=== PATIENT | female | born 1950 | race Caucasian/White ===

== ENCOUNTER 2022-07-22 08:50 | Day surgery (SDC) | payer MEDICARE, SELFPAY ==
[2022-07-22 09:19] VITALS: BP 133/91; PULSE 79; RESP 16; TEMP 36.4; O2SAT 98
[2022-07-22] MEDS: Tropicam./Phenyleph. (1/2.5%) 5 ML BTL OS ×3 (09:23→09:34)
--- NOTE | 2022-07-22 09:39 | W.ANESPRE ---
General Info Date of Service Date Performed: 07/22/22 Height: 5 ft 1 in Weight: 87.1 kg Body Mass Index (BMI): 36.3 Surgical Procedure: Operation Date: 07/22/22 10:40 Proposed Procedure Side Surgeon p Cataract Extraction with IOL Implant Left Job Combs MD Meds Allergies and Home Medications Allergies Allergy/AdvReac Type Severity Reaction Status Date / Time penicillin V Allergy Severe Anaphylaxsi Unverified 07/22/22 09:24 s lisinopril [From Zestril] Allergy Other (See Unverified 07/22/22 09:24 Comment) clopidogrel [From Plavix] AdvReac Intermediate Other (See Unverified 07/22/22 09:24 Comment) pantoprazole [From Protonix] AdvReac Intermediate Diarrhea Unverified 07/22/22 09:24 Home Medication Medication Instructions Recorded aspirin 325 mg tablet 325 mg PO DAILY 11/16/16 calcium carbonate 200 mg calcium 500 mg PO PRN PRN 11/16/16 (500 mg) chewable tablet carvedilol 25 mg tablet 25 mg PO BID 11/16/16 cholecalciferol (vitamin D3) 125 5,000 unit PO DAILY 11/16/16 mcg (5,000 unit) capsule furosemide 40 mg tablet 40 mg PO DAILY PRN .If BP>145 or 11/16/16 edema levothyroxine 125 mcg tablet 125 mcg PO DAILY 11/16/16 magnesium oxide 400 mg (241.3 mg 400 mg PO BID 11/16/16 magnesium) tablet metformin 500 mg tablet 500 mg PO BID 11/16/16 omega-3 fatty acids-fish oil 340 2 ea PO DAILY 11/16/16 mg-1,000 mg capsule (Fish Oil) potassium chloride 20 mEq 20 meq PO .MONDAY AND Monday11/16/16 tablet,extended release(part/cryst) (Klor-Con M) amlodipine 10 mg tablet 10 mg PO DAILY 07/21/22 furosemide 20 mg tablet 20 mg PO BID 07/21/22 losartan 100 mg tablet 100 mg PO DAILY 07/21/22 omeprazole 40 mg capsule,delayed 40 mg PO DAILY 07/21/22 release spironolactone 25 mg tablet 25 mg PO DAILY 07/21/22 Current Visit Medications: Current Medications Generic Name Dose Route Start Last Admin Trade Name Freq PRN Reason Stop Dose Admin Acetaminophen 1,000 mg 07/22/22 06:00 Acetaminophen 500 Mg Tab PO Q4H PRN PRN Miscellaneous Medication 0 ml 07/22/22 06:00 07/22/22 09:34 Tropicam./Phenyleph. (1/2.5%) 5 Ml Btl OS 1 drp DIRECTED ARMIDA Administration Miscellaneous Medication 0 ml 07/22/22 06:00 Prednisolone 1%, Moxifloxacin 0.5%, Nepafenac 0.1% 5ml Btl OS DIRECTED ARMIDA Tetracaine HCl 0 ml 07/22/22 06:00 Tetracaine 0.5% 4 Ml Btl OS DIRECTED ARMIDA PFSH Active Problems Active Problems: Problem Status Onset Code Posterior subcapsular age-related cataract of left eye H25.042 Nuclear sclerotic cataract of left eye H25.12 Medical History Medical History Asymptomatic cholelithiasis BRBPR (bright red blood per rectum) Cardiac arrhythmia Per pt. states her PCP stated that sometimes they see it in her visits other times not CVA (cerebral vascular accident) Right MCA: 09/30/15-Per pt. states follows up with Dr. Kay @ [facility] last seen 10/2021. Cystitis Diarrhea Endometrial cancer tx: complete LAVH Essential (primary) hypertension Hypomagnesemia Hyponatremia Hypothyroidism Lumbar spondylosis with myelopathy Right flank pain Type 2 diabetes mellitus Surgical History Surgical History History of total abdominal hysterectomy and bilateral salpingo-oophorectomy Hx of appendectomy Hx of cataract surgery Hx of colonoscopy Tobacco Smoking/Tobacco Use Status: Never Alcohol Alcohol Intake: never Substance Use Substance use: Never Substance use type: does not use Vital Signs and Lab Results Vital Signs Most Recent Vital Signs in EMR: Most Recent Vital Signs Temp Pulse Resp BP Pulse Ox 36.4 C L 79 16 133/91 H 98 07/22/22 09:19 07/22/22 09:19 07/22/22 09:19 07/22/22 09:19 07/22/22 09:19 Point of Care Results Point of Care Results: Finger Stick Blood Glucose 207 07/22/22 09:30 Lab Results Blood Type / Crossmatch: No Data to Display Complete Blood Count: No Data to Display Complete Metabolic Panel: No Data to Display Liver Function Panel: No Data to Display Coagulation Panel: No Data to Display Cardiac Panel: No Data to Display Arterial Blood Gas: No Data to Display Venous Blood Gas: No Data to Display Pancreas Panel: No Data to Display Thyroid Panel: No Data to Display Infectious Disease: No Data to Display Blood Cultures: No Data to Display Toxicology Panel: No Data to Display Anesthesia Assessment and Plan Anesthesia History Personal History: No History of Anesthesia Complications Family History: No Family History of Anesthesia Complications Exercise Tolerance Exercise Tolerance: Metabolic Equivalents>4 Pertinent Negatives Pertinent Negatives: No Symptoms of GERD Cardiac & Pulmonary Exam Cardiac Exam: Normal S1/S2 Heart Sounds Pulmonary Exam: Clear Bilateral Breath Sounds Implantable Cardiac Device Does patient have a Pacemaker or an ICD?: No Airway Exam Known Difficult Airway: No Mallampati Class: 3 Mouth Opening: Normal (> 3cm) Thyromental Distance: Greater than 3 cm Neck Range of Motion: Full ROM Neck Circumference: Normal Teeth Condition: Normal Dentition and Removable Dentures/Plates Upper ASA Classification ASA Score: ASA 2 Emergency Case?: No NPO Status NPO Status: NPO Clears >2 hours, Solids >8 hours Anesthesia Plan Resuscitation Status: Full Code Anesthesia Technique: MAC Anesthesia Airway Planned: Natural Airway Monitors Used: Standard Monitors
[2022-07-22 10:23] VITALS: BMI 36.3
[2022-07-22] MEDS: Tetracaine 0.5% 4 ML BTL OS (10:46)
[2022-07-22] MEDS: Duovisc Viscoelastic System EACH 1 EACH (10:46)
[2022-07-22] MEDS: Balanced Salt Soln.-PLUS 500 ML BAG (10:46)
[2022-07-22] MEDS: Lidocaine 1% Pres-Free 5 ML VIAL (10:47)
[2022-07-22] MEDS: Phenylephrine/Lidocaine (15/10) MG/ML 1 ML VIAL (10:47)
[2022-07-22] MEDS: Povidone-Iodine Ophth 30 ML BTL (10:48)
[2022-07-22 11:05] VITALS: BP 155/94; PULSE 72; RESP 16; TEMP 36.4; O2SAT 98
--- NOTE | 2022-07-22 11:06 | W.PM.DSUDISC ---
Date of service: 07/22/22 Time of Service: 11:06 Discharge Plan Disposition Patient Disposition: Home Discharge Details Attending Provider: Job Combs Primary Care Provider: Ana Mckinnon Home Meds and New Rx's Prescriptions: No Action furosemide 40 MG tablet 40 mg PO DAILY PRN (Reason: .If BP>145 or edema) aspirin 325 MG tablet 325 mg PO DAILY calcium carbonate 500 MG tablet,chewable 500 mg PO PRN PRN potassium chloride [Klor-Con M20] 20 MEQ tablet,ER particles/crystals 20 meq PO .MONDAY AND MONDAY Patient Comments: TAKES MONDAY AND MONDAY metformin 500 MG tablet 500 mg PO BID carvedilol 25 MG tablet 25 mg PO BID magnesium oxide 400 MG tablet 400 mg PO BID levothyroxine 125 MCG tablet 125 mcg PO DAILY cholecalciferol (vitamin D3) 5,000 UNIT capsule 5,000 unit PO DAILY Fish Oil 1 EACH capsule 2 ea PO DAILY omeprazole 40 mg capsule,delayed release(DR/EC) 40 mg PO DAILY Patient Comments: TAKE 1 CAPSULE BY MOUTH DAILY spironolactone 25 mg tablet 25 mg PO DAILY Patient Comments: TAKE 1 TABLET BY MOUTH EVERY DAY amlodipine 10 mg tablet 10 mg PO DAILY Patient Comments: TAKE 1 TABLET BY MOUTH DAILY FOR HIGH BLOOD PRESSURE furosemide 20 mg tablet 20 mg PO BID Patient Comments: TAKE 2 TABLETS BY MOUTH DAILY losartan 100 mg tablet 100 mg PO DAILY Patient Comments: TAKE 1 TABLET BY MOUTH DAILY Discharge Instructions Stand Alone Forms: Post-op Topical Cataract, Estevan Little (DSU) Discharge Orders Discharge Orders: Discharge Order (Routine); Ordered 07/22/22 Ordered By: Job Combs DS: Diagnosis Discharge Diagnosis (1) Posterior subcapsular age-related cataract of left eye: Status: Resolved (2) Nuclear sclerotic cataract of left eye: Status: Resolved
--- NOTE | 2022-07-22 11:07 | ROE_ITS ---
Date of service: 07/22/22 Time of Service: 11:07 Operative Note Operative Note DATE OF PROCEDURE: 07/22/22 PRE-OP DIAGNOSIS: Nuclear/posterior subcapsular cataract, left eye POST-OP DIAGNOSIS: same PROCEDURE: Cataract extraction using phacoemulsification with intraocular lens implant, left eye SURGEON: Job Combs ANESTHESIA TYPE: Local By Surgeon and MAC Refer to Anesthesia Record PATHOLOGY: none sent COMPLICATIONS: None Patient was transported to: same day Patient's condition: stable Implants: Rigoberto Clareon [id number] Indications: Progressive decreased vision due to cataract, left eye Procedure Description: CATARACT SURGERY OPERATIVE REPORT PREOPERATIVE DIAGNOSIS: Nuclear/posterior subcapsular cataract, left eye POSTOPERATIVE DIAGNOSIS: Same OPERATION: Cataract extraction using phacoemulsification with posterior chamber intraocular lens implant, left eye. IOL: IOL Flavor Tank Tender/Model: Rigoberto Clareon [id number] IOL Power: + 20.0 diopters IOL Serial Number: [id number] Optic Diameter: 6.0mm Haptic/Overall Diameter: 13.0mm PHACO INFO: RigobertoAzuki Systemsurion Vision System with OZil and Active Fluidics Cumulative Dispersed Energy (CDE): 16.18 seconds SURGEON: Job Combs MD, LIZY ANESTHESIA: Monitored Anesthesia Care (MAC), with local sub-tenon's anesthetic infiltration COMPLICATIONS: None SPECIMENS: None INDICATIONS FOR PROCEDURE: The patient is a 71-year-old lady with history of diminished visual acuity in her left eye secondary to the development of nuclear/posterior subcapsular cataract. She has previously undergone cataract surgery in the right eye in 2017 and is doing well postoperatively there. She now presents for cataract surgery in the left eye where she has visual acuity of 20/200 in the presence of significant nuclear/posterior subcapsular cataract. PROCEDURE: The correct surgical eye was identified and marked as the left eye and the pupil was dilated in the preoperative area using mydriatics and cycloplegics. The dilated pupil size was 7.0 mm. The patient elected to proceed without oral sedation. The patient was brought to the operating room where cardiopulmonary monitoring was instituted and surgical time-out was performed, confirming the correct operative eye and IOL power. Topical anesthesia was administered and ophthalmic povidone-iodine 5% was instilled into the conjunctival fornices. Lidocaine gel was applied to the cornea and the garett-ocular area was prepped with Betadine 10% solution and draped in the usual sterile fashion for intraocular surgery, including an aperture drape. A Tegaderm transparent film dressing was cut in half and used t o cover the lashes and lid margins. Care was taken to sequester the lashes and lid margins under the Tegaderm dressing. A lid speculum was placed between the lids of the operative eye and the Rigoberto LuxOR Revalia operating microscope was maneuvered into position. Krishan scissors were then used to make a conjunctival buttonhole approximately 6mm posterior to the limbus in the inferonasal quadrant. Blunt dissection was carried out to expose bare sclera, and a blunt-tipped sub-tenon?s anesthesia cannula was introduced and passed posteriorly along the globe where non- preserved plain lidocaine was injected into posterior sub-Tenon?s space. A sideport knife was used to make a paracentesis port superior/superiortemporally. Intraocular phenylephrine/lidocaine was injected into the anterior chamber. The anterior chamber was then filled with viscoelastic. A keratome knife was used construct a two-plane near-clear corneal tunnel extending 2.0mm into clear cornea in the temporal position. . A flap was raised on the anterior capsule and capsulorhexis forceps were used to complete a continuous curvilinear capsulorhexis of 5.5 mm. Balanced salt solution was then used to perform cortical cleaving hydrodissection and nuclear hydrodelineation until the lens could be freely rotated within the capsular bag. The lens nucleus was then disassembled and removed within the capsular bag and iris plane using phacoemulsification. Residual cortical material was removed using the 45-degree angled silicone I/A tip with 0.3mm port. The posterior capsule was carefully polished to remove as much residual lens epithelial cells as safely possible. The posterior capsule was noted to be quite thin. There was some residual posterior subcapsular plaque centrally and nasally which could not be safely removed. The capsular bag was then inflated and the anterior chamber deepened with viscoelastic. The lens implant described above was inserted into the capsular bag using the Rigoberto Autonome Injector. A Kuglen hook was used to dial the IOL into position. Residual viscoelastic was then removed first from posterior to the IOL, then from the anterior chamber using the I/A handpiece. The lens implant was noted to center nicely within the capsular bag. The incisions were stromally hydrated, and the anterior chamber was reformed using BSS. Then 0.5cc of moxifloxacin 1.0mg/ml were injected into the capsular bag and anterior chamber. The incisions were checked with a Weck spear and found to be secure. Several drops of ophthalmic povidone-iodine 5% were then applied to the eye followed by two drops of Imprimis combination prednisolone/moxifloxacin/nepafenac solution. The drapes were removed and a clear plastic protective eye shield was placed over the eye. The patient was then returned to Same Day Surgery in stable condition.
--- NOTE | 2022-07-22 11:16 | W.ANESPOSTOP ---
Postoperative Evaluation Date, Time and Location Date Performed: 07/22/22 Time Performed: 11:16 Patient Location: Day Surgery Unit Vital Signs Most Recent Imported Vital Signs: Most Recent Vital Signs Temp Pulse Resp BP Pulse Ox 36.4 C L 72 16 155/94 H 98 07/22/22 11:05 07/22/22 11:05 07/22/22 11:05 07/22/22 11:05 07/22/22 11:05 Pain Score Most Recent Pain Score: Most Recent Pain Score Pain Level 0 07/22/22 11:05 Assessment Mental Status: Awake (Alert & Oriented to Patient Baseline) Airway and Respiratory Function: Patent airway with normal (patient baseline) respiratory exam Cardiovascular Function: Hemodynamically Stable Hydration Status: Adequately Hydrated Nausea & Vomiting: No Nausea or Vomiting Pain: Pt. Denies Any Pain Peripheral Nerve Block: Patient did not receive a nerve block
== END 2022-07-22 11:30 | disposition home or self-care (01) ==
PROVIDERS: PCP Physician Assistant; Visit Provider Ophthalmology
PROC: (CPT 66984; principal; 2022-07-22 10:30)
DX: H25.042 Posterior subcapsular polar age-related cataract, left eye (principal); E11.9 Type 2 diabetes mellitus without complications
CPT/HCPCS: 66984; V2632